=== PATIENT | male | born 1965 | race Caucasian/White ===

== ENCOUNTER 2016-11-03 01:38 | Emergency (ER) | payer SELFPAY ==
[~2016-11-03] VITALS: Ht 172.7 cm; Wt 90.7 kg
[2016-11-03 02:42] VITALS: BP 144/78
== END 2016-11-03 02:58 | disposition home or self-care (01) ==
LOC: ER 01:43
DX: R51 Headache (principal); F41.9 Anxiety disorder, unspecified; I10 Essential (primary) hypertension
CPT/HCPCS: 99284; A4606; Z7610

== ENCOUNTER 2017-04-09 22:52 | Emergency (ER) | payer SELFPAY ==
[~2017-04-09] VITALS: Ht 175.3 cm; Wt 89.4 kg
[2017-04-10 01:14] VITALS: BP 130/95
[2017-04-10] MEDS ORDERED: DEXAMETHASONE SOD PHOSPHATE 10 MG/ML VIAL ONE (01:47)
[2017-04-10] MEDS ORDERED: KETOROLAC TROMETHAMINE INJ 60 MG/2 ML VIAL IM ONE ×2 (01:47→02:00)
[2017-04-10] MEDS ORDERED: COLCHICINE 0.6 MG TABLET ONE (01:47)
[2017-04-10] MEDS ORDERED: COLCHICINE 0.6 MG TABLET PO ONE (02:00)
[2017-04-10] MEDS ORDERED: DEXAMETHASONE SOD PHOSPHATE 4 MG/ML VIAL IM ONE (02:00)
--- NOTE | 2017-04-10 02:01 | NUR ---
medicated patient as ordered by Dr Haywood.
== END 2017-04-10 02:50 | disposition home or self-care (01) ==
LOC: ER 22:54
DX: M10.9 Gout, unspecified (principal); I10 Essential (primary) hypertension; F41.9 Anxiety disorder, unspecified
CPT/HCPCS: 36415; 73630-TC; 84550-TC; A4606; J1100; J1885; Z7610